=== PATIENT | female | born 1985 | race Caucasian/White ===

== ENCOUNTER → 2024-06-04 10:04 | Outpatient (REF) | payer BC, SELFPAY | LOC: PNTC 10:04 | PROVIDERS: ATTENDING PHYSICIAN Advanced Practice Midwife | DX: Z36.0 Encounter for antenatal screening for chromosomal anomalies (principal); Z36.82 Encounter for antenatal screening for nuchal translucency | CPT/HCPCS: 36415; 76801; 76813; 76817 ==

== ENCOUNTER 2024-07-04 07:53 | Emergency (ER) | payer BC, SELFPAY ==
[2024-07-04 07:55] VITALS: BP 122/86
--- NOTE | 2024-07-04 08:33 | ED.GENMED ---
History of Present Illness
General
Chief Complaint: Problems
Source: patient and spouse
Exam Limitations: none
Time Seen by Provider: 07/04/24 08:08
Nursing documentation reviewed up to this point in time: agreed with
History of Present Illness
History of Present Illness:
39-year-old female G2, P1 17 weeks presenting to the emergency department today with concerns of vaginal bleeding and cramping this morning described as bright red blood no clots no discharge. No preceding symptoms no increase in physical
activity or trauma. Follows up with those, myself
Past History
Past History
ED Past Medical History: Psychiatric (anxiety) and Other (IBS)
Social History
Tobacco: Non-smoker
Personal:
Review of Systems
Review of Systems
Allergies reviewed?: Yes
All Other Systems: ROS reviewed and negative except as documented in HPI and ROS
Phy Exam
Physical Exam
Physical Exam:
GENERAL: Alert , in no apparent distress
EYE: pupils equal and reactive
NECK: Supple, no significant adenopathy.
ENT: o/p clr, mmm.
CARDIAC: Regular rate and rhythm .
LUNGS: Clear breath sounds bilaterally, no acute respiratory distress, no wheezes/rales/rhonchi
ABDOMEN: Gravid abdomen, otherwise soft, without focal tenderness, no r/g, no cvat
Pelvic: Red blood in vaginal vault come from the cervix normal appearing cervix
NEUROLOGICAL: Alert and oriented, no focal neuro deficits
SKIN: Warm and dry, skin intact.
MUSCULOSKELETAL: No edema, well perfused.
PSYCH: Normal and appropriate interaction.
Course
Orders/Labs/Results
Orders:
Orders
07/04/24 08:28
Urinalysis Reflex To Culture Urgent
07/04/24 08:29
IV Insert/Care/Rem.- Treatment PRN
07/04/24 08:40
Type+Screen Urgent
CBC/With Diff [Complete Blood Count/With Diff] Urgent
CMP [Comprehensive Metabolic Panel] Urgent
07/04/24 08:51
ABO2 Urgent
BBK Wristband Number:
Associate notified that ABO2 has been ordered: [id number]
Date: 07/04/24
Time: 08:52
Outbound Telemarketer ID: [id number]
07/04/24 08:57
US W Transvaginal Urgent
Reason For Exam: vaginal bleeding cramping
Abnormal Lab Results
07/04/24
08:40
Hgb 11.8 L g/dL
(12.0-16.0)
Hct 34.5 L %
(37.0-47.0)
MCV 80.8 L fL
(81.0-99.0)
Creatinine 0.5 L mg/dL
(0.6-1.0)
Alkaline Phosphatase 29 L U/L
(38-126)
07/04/24 08:40
07/04/24 08:40
Vital Signs
Initial and Last Documented VS:
Initial Vital Signs
Temp Pulse Resp BP Pulse Ox
98.7 F 86 18 122/86 99
07/04/24 07:55 07/04/24 07:55 07/04/24 07:55 07/04/24 07:55 07/04/24 07:55
Last Documented Vital Signs
Temp Pulse Resp BP Pulse Ox
98.7 F 68 16 119/69 100
07/04/24 07:55 07/04/24 10:46 07/04/24 12:00 07/04/24 10:46 07/04/24 10:46
Information
Weeks gestation: Weeks: (17)
Location: Location: (iup)
MDM/Problems Addressed
MDM/Problems Addressed:
17 weeks woke up today with vaginal bleeding and some pelvic cramping. Upon arrival vital signs are normal patient in no distress patient does have red blood in the vaginal vault otherwise normal exam. Case discussed with OB plan to
get ultrasound and further blood testing. Ultrasound showing placenta previa as well as a complex left ovarian cyst. Case was discussed with gynecology obstetrics who came to see the patient and discussed all findings and appropriate follow-up.
Patient with decreased bleeding here feels well stable for discharge return precautions given.
*Critical Care Note
Total Time (30-74mins, 75-104mins- exclusive of procedures): Not Applicable
ED Attending Note
-
Portions of this chart may have been created with voice recognition software.� Occasional wrong word or��sound alike� substitutions may have occurred due to the inherent limitations of voice recognition software.
Discharge Plan
Departure
Patient Disposition: Home (Routine Discharge)
Date of Disposition: 07/04/24
Time of Disposition: 13:02
Patient with high blood pressure during this ER visit?: No
Condition: Good
Covid-19: Not Applicable
Discharge Problem:
Placenta previa, Mass of ovary
Instructions: Placenta previa
Prescriptions:
No Action
fluoxetine 20 MG capsule
20 mg PO DAILY
lubiprostone [Amitiza] 8 MCG capsule
40 mcg PO DAILY
melatonin 5 MG tablet
5 mg PO HS
hydrocortisone acetate 25 MG suppository
25 mg GA HS Qty: 5 0RF
Referrals:
Khushboo Schaffer CRNP [Family Provider] -
Activity Restrictions/Additional Instructions:
You came to the emergency department today with concerns of vaginal bleeding in . You are found to have placenta previa which explains her symptoms at this time. 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 Please do not engage in any intercourse or any traumatic vaginal insertions. Otherwise please rest and return for any worsening, new or concerning symptoms.
Interventions
Interventions:
*Risk Screen - Suicide Last Done: 07/04/24 07:55
*General Assessment Last Done: 07/04/24 08:03
*Neglect/Abuse Screening Last Done: 07/04/24 07:55
ED- Fall Risk Assessment Last Done: 07/04/24 08:47
*ED COVID-19 Vaccine History Last Done: 07/04/24 07:55
ED-Female Genitourinary Assessment Last Done: 07/04/24 08:03
Discharge Date and Time
Print Language: SPANISH
[2024-07-04 08:48] LABS: % Basophils 0.8 % (0-2); % Eosinophils 1.7 % (0-6); % Immature Granulocytes 0.5 % (0-0.5); % Lymphocytes 27.6 % (20.5-51.1); % Monocytes 7.7 % (1.7-9.3); % Neutrophils 61.7 % (42.2-75.2); Absolute Basophils 0.1 10^3/uL (0-0.2); Absolute Eosinophils 0.1 10^3/uL (0-0.7); Absolute Lymphocytes 1.8 10^3/uL (1.2-3.4); Absolute Monocytes 0.5 10^3/uL (0.1-0.6); Hematocrit 34.5 % (37.0-47.0); Hemoglobin 11.8 g/dL (12.0-16.0); Mean Corp Hgb Conc. 34.2 g/dL (33.0-37.0); Mean Corpuscular Hgb 27.6 pg (27.0-31.0); Mean Corpuscular Volume 80.8 fL (81.0-99.0); Mean Platelet Volume 9.9 fL (7.4-10.4); Nucleated Red Blood Cells % 0 %; Platelet Count 207 10^3/uL (130-400); Red Blood Cell Count 4.27 10^6/uL (4.20-5.40); Red Cell Dist. Width 13.3 % (11.5-14.5); White Blood Cell Count 6.5 10^3/uL (4.8-10.8)
[2024-07-04 09:00] LABS: ALT (SGPT) 14 U/L (0-35); AST (SGOT) 22 U/L (14-36); Albumin 3.9 g/dl (3.5-5.0); Alkaline Phosphatase 29 U/L (38-126); Blood Urea Nitrogen 12 mg/dl (7-17); Calcium 9.2 mg/dl (8.4-10.2); Carbon Dioxide 22 mmol/L (22-30); Chloride 106 mmol/L (98-107); Glucose 76 mg/dl (70-99); Potassium 4.1 mmol/L (3.5-5.1); Sodium 137 mmol/L (135-145); Total Bilirubin 0.3 mg/dl (0.2-1.3); Total Protein 6.4 g/dl (6.3-8.2); eGFR > 60.00
[2024-07-04 10:46] VITALS: BP 119/69
[2024-07-04 13:07] VITALS: BP 121/74
== END 2024-07-04 13:08 | disposition home or self-care (01) ==
LOC: EMR 07:53
PROVIDERS: Physician Assistant; EMERGENCY PHYSICIAN Emergency Medicine; FAMILY PHYSICIAN Nurse Practitioner Adult Health
DX: O44.02 Complete placenta previa NOS or without hemorrhage, second trimester (principal); O34.82 Maternal care for other abnormalities of pelvic organs, second trimester; N83.292 Other ovarian cyst, left side; O09.522 Supervision of elderly multigravida, second trimester; Z3A.17 17 weeks gestation of pregnancy
CPT/HCPCS: 99284; 76801; 76817; 80053; 85025; 86850; 86900; 86901

== ENCOUNTER → 2024-07-28 09:03 | Outpatient (REF) | payer BC, SELFPAY | LOC: PNTC 09:03 | PROVIDERS: ATTENDING PHYSICIAN Advanced Practice Midwife | DX: O09.529 Supervision of elderly multigravida, unspecified trimester (principal); Z34.82 Encounter for supervision of other normal pregnancy, second trimester; O43.219 Placenta accreta, unspecified trimester | CPT/HCPCS: 76811; 93976 ==

== ENCOUNTER → 2024-08-28 11:54 | Outpatient (REF) | payer BC, SELFPAY | LOC: PNTC 11:54 | PROVIDERS: ATTENDING PHYSICIAN Obstetrics & Gynecology | DX: O44.30 Partial placenta previa with hemorrhage, unspecified trimester (principal) | CPT/HCPCS: 76816; 76817 ==

== ENCOUNTER → 2024-09-29 09:03 | Outpatient (REF) | payer BC, SELFPAY | LOC: PNTC 09:03 | PROVIDERS: ATTENDING PHYSICIAN Advanced Practice Midwife | DX: O44.40 Low lying placenta NOS or without hemorrhage, unspecified trimester (principal) | CPT/HCPCS: 76816; 76817 ==

== ENCOUNTER → 2024-10-28 08:33 | Outpatient (REF) | payer BC, SELFPAY | LOC: PNTC 08:33 | PROVIDERS: ATTENDING PHYSICIAN Obstetrics & Gynecology | DX: O44.40 Low lying placenta NOS or without hemorrhage, unspecified trimester (principal); O34.80 Maternal care for other abnormalities of pelvic organs, unspecified trimester | CPT/HCPCS: 76816; 76817 ==

== ENCOUNTER 2024-11-21 15:41 | Observation (INO) | payer BC, SELFPAY ==
[2024-11-21 15:47] VITALS: BP 118/75; BMI 34.1
[2024-11-21 16:17] LABS: % Basophils 0.3 % (0-2); % Eosinophils 0.4 % (0-6); % Immature Granulocytes 0.4 % (0-0.5); % Lymphocytes 25.8 % (20.5-51.1); % Monocytes 7.1 % (1.7-9.3); Absolute Lymphocytes 2.4 10^3/uL (1.2-3.4); Absolute Monocytes 0.7 10^3/uL (0.1-0.6); Absolute Neutrophils 6.2 10^3/uL (1.4-6.5); Hematocrit 35.9 % (37.0-47.0); Hemoglobin 11.7 g/dL (12.0-16.0); Mean Corp Hgb Conc. 32.6 g/dL (33.0-37.0); Mean Corpuscular Hgb 27.9 pg (27.0-31.0); Mean Corpuscular Volume 85.7 fL (81.0-99.0); Mean Platelet Volume 11.1 fL (7.4-10.4); Nucleated Red Blood Cells % 0 %; Platelet Count 186 10^3/uL (130-400); Red Blood Cell Count 4.19 10^6/uL (4.20-5.40); Red Cell Dist. Width 15.2 % (11.5-14.5); White Blood Cell Count 9.5 10^3/uL (4.8-10.8)
[2024-11-21 16:29] LABS: ALT (SGPT) 13 U/L (0-35); AST (SGOT) 19 U/L (14-36); Albumin 3.9 g/dl (3.5-5.0); Alkaline Phosphatase 93 U/L (38-126); Blood Urea Nitrogen 8 mg/dl (7-17); Calcium 9.2 mg/dl (8.4-10.2); Carbon Dioxide 19 mmol/L (22-30); Chloride 106 mmol/L (98-107); Estimated Creatinine Clearance > 125 ml/min; Glucose 68 mg/dl (70-99); Potassium 3.9 mmol/L (3.5-5.1); Sodium 133 mmol/L (135-145); Total Bilirubin 0.5 mg/dl (0.2-1.3); Total Protein 6.5 g/dl (6.3-8.2); eGFR > 60.00
[2024-11-21 16:36] LABS: Protein/creatinine Ratio 0.1; Urine Protein 11 mg/dl
== END 2024-11-21 17:12 | disposition home or self-care (01) ==
LOC: LDRP 15:41
PROVIDERS: ADMITTING PHYSICIAN Obstetrics & Gynecology
DX: O26.893 Other specified pregnancy related conditions, third trimester (principal); Z3A.37 37 weeks gestation of pregnancy; R51.9 Headache, unspecified; R03.0 Elevated blood-pressure reading, without diagnosis of hypertension; Z88.2 Allergy status to sulfonamides; Z88.8 Allergy status to other drugs, medicaments and biological substances
CPT/HCPCS: 80053; 82570; 84156; 85025; 86850; 86900; 86901; G0378

== ENCOUNTER → 2024-11-25 09:02 | Outpatient (REF) | payer BC, SELFPAY | LOC: PNTC 09:02 | PROVIDERS: ATTENDING PHYSICIAN Obstetrics & Gynecology | DX: O44.40 Low lying placenta NOS or without hemorrhage, unspecified trimester (principal) | CPT/HCPCS: 76816; 76817 ==

== ENCOUNTER 2024-12-04 07:06 | Inpatient (IN) | payer BC, SELFPAY ==
[2024-12-04 07:18] VITALS: BP 133/91; BMI 34.9
[2024-12-04] MEDS: LR 1000 IV ×2 (07:45→14:02)
[2024-12-04 08:12] LABS: Hematocrit 35.4 % (37.0-47.0); Hemoglobin 11.6 g/dL (12.0-16.0); Mean Corp Hgb Conc. 32.8 g/dL (33.0-37.0); Mean Corpuscular Volume 85.5 fL (81.0-99.0); Mean Platelet Volume 11.1 fL (7.4-10.4); Platelet Count 193 10^3/uL (130-400); Red Blood Cell Count 4.14 10^6/uL (4.20-5.40); White Blood Cell Count 8.7 10^3/uL (4.8-10.8)
[2024-12-04] MEDS: TYLENOL 1000 MG PO (08:29)
[2024-12-04] MEDS: BICITRA 30 ML PO (08:30)
[2024-12-04] MEDS: ANCEF 10 IV (08:31)
[2024-12-04] MEDS: PITOCIN 30 UNITS/NSS 500 ML IV ×2 (10:35→14:12)
[2024-12-04] MEDS: BENADRYL 25 MG IV (13:03)
[2024-12-04] MEDS: TORADOL 15 MG IV ×2 (16:58→23:08)
[2024-12-04] MEDS: ZOFRAN 4 MG IV (17:06)
[2024-12-04] MEDS: REGLAN 10 MG IV (19:57)
[2024-12-05 04:58] LABS: Hematocrit 31.7 % (37.0-47.0); Hemoglobin 10.5 g/dL (12.0-16.0); Mean Corp Hgb Conc. 33.1 g/dL (33.0-37.0); Mean Corpuscular Hgb 27.9 pg (27.0-31.0); Mean Corpuscular Volume 84.3 fL (81.0-99.0); Mean Platelet Volume 11.2 fL (7.4-10.4); Platelet Count 191 10^3/uL (130-400); Red Blood Cell Count 3.76 10^6/uL (4.20-5.40); White Blood Cell Count 13.7 10^3/uL (4.8-10.8)
[2024-12-05] MEDS: TORADOL 15 MG IV ×2 (05:12→11:26)
--- NOTE | 2024-12-05 08:12 | W.PN.ANS.POP ---
Anesthesia Post Operative
- Anesthesia Post Op Note
Vital Signs Stable-See Nursing Note: Yes
Airway Patent: Yes
Adequate Pain Control: Yes
Change in Mental Status: No
Current Postoperative Nausea & Vomiting: No
Anesthesia Complications: No
General Anesthetic Recall: No
Unplanned Admission: No
Post Op Hydration Adequate: Yes
[2024-12-05] MEDS: FEOSOL 325 MG PO (08:40)
[2024-12-05] MEDS: PRENATAL PLUS 1 TABLET PO (08:40)
[2024-12-05] MEDS: MUCINEX 600 MG PO ×2 (08:40→20:07)
[2024-12-05 10:56] LABS: Syphilis/T. pallidum Ab Reflex Negative (Negative)
[2024-12-05 11:39] LABS: ALT (SGPT) 18 U/L (0-35); AST (SGOT) 27 U/L (14-36); Albumin 3.2 g/dl (3.5-5.0); Alkaline Phosphatase 84 U/L (38-126); Blood Urea Nitrogen 9 mg/dl (7-17); Calcium 9.4 mg/dl (8.4-10.2); Carbon Dioxide 26 mmol/L (22-30); Chloride 105 mmol/L (98-107); Estimated Creatinine Clearance > 125 ml/min; Glucose 77 mg/dl (70-99); Potassium 3.9 mmol/L (3.5-5.1); Sodium 134 mmol/L (135-145); Total Bilirubin 0.5 mg/dl (0.2-1.3); Total Protein 5.7 g/dl (6.3-8.2); eGFR > 60.00
[2024-12-05] MEDS: TYLENOL 650 MG PO ×2 (14:56→23:44)
[2024-12-05] MEDS: MOTRIN 600 MG PO ×2 (16:59→23:44)
[2024-12-05] MEDS: PROCARDIA XL (EXTENDED RELEASE) 30 MG PO (16:59)
[2024-12-05] MEDS: BENADRYL 25 MG PO (18:33)
[2024-12-05] MEDS: REGLAN 10 MG PO (18:33)
[2024-12-05] MEDS: MYLICON 80 MG PO (23:44)
[2024-12-06] MEDS: FEOSOL 325 MG PO (07:36)
[2024-12-06] MEDS: MUCINEX 600 MG PO (07:36)
[2024-12-06] MEDS: PRENATAL PLUS 1 TABLET PO (07:37)
[2024-12-06] MEDS: PROCARDIA XL (EXTENDED RELEASE) 30 MG PO (07:37)
[2024-12-06] MEDS: SENOKOT-S 1 TABLET PO (07:44)
[2024-12-06] MEDS: TYLENOL 650 MG PO ×2 (07:44→14:17)
[2024-12-06] MEDS: MOTRIN 600 MG PO ×2 (07:45→14:18)
--- NOTE | 2024-12-06 16:52 | W.DS.TRANS ---
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
-
Discharge Instructions:
Discharge Diagnosis/Procedures delivery
Instructions:
Stand-Alone Forms: LDRP Delivery
LDRP Hypertensive Disorders
Changes to Home Medications: No
Discharge Medications:
DC Medications w/original date entered in [employer]
Vitamin 1 tab PO DAILY 11/21/24
polyethylene glycol 3350 17 gram oral powder packet (Miralax) 1 g PO DAILY 11/21/24
Colace 2 tab PO BID 12/04/24
acetaminophen 325 mg tablet 650 mg (2 x 325 mg) PO Q4HPRN PRN mild pain #0 tabs 12/06/24
ferrous sulfate 325 mg (65 mg iron) tablet (FeroSul) 325 mg PO DAILY #0 tabs 12/06/24
guaifenesin 600 mg tablet, extended release 12 hr 600 mg PO Q12 #0 tabs 12/06/24
ibuprofen 600 mg tablet 600 mg PO Q6HPRN PRN cramps #30 tabs 12/06/24
nifedipine 30 mg tablet,extended release 30 mg PO DAILY #30 tabs 12/06/24
sennosides 8.6 mg-docusate sodium 50 mg tablet 1 tab PO DAILYPRN PRN constipation #0 tabs 12/06/24
simethicone 80 mg chewable tablet 80 mg PO TIDPRN PRN flatulence #0 tabs 12/06/24
Home Medication Changes
Pending Results: Yes
Additional Pending Results:
salpingectomy and ovarian cystectomy path reports
Total time spent discharging patient (in min): 20
== END 2024-12-06 17:47 | disposition home or self-care (01) | DRG 785 ==
LOC: LDRP 07:06
PROVIDERS: Student in an Organized Health Care Education/Training Program; ADMITTING PHYSICIAN Obstetrics & Gynecology
PROC: 0UT20ZZ Resection of Bilateral Ovaries, Open Approach (ICD-10-PCS; 2024-12-04)
PROC: 10D00Z1 Extraction of Products of Conception, Low, Open Approach (ICD-10-PCS; 2024-12-04)
PROC: 0UT70ZZ Resection of Bilateral Fallopian Tubes, Open Approach (ICD-10-PCS; 2024-12-04)
DX: O34.211 Maternal care for low transverse scar from previous cesarean delivery (principal); Z3A.39 39 weeks gestation of pregnancy; Z37.0 Single live birth; O69.81X0 Labor and delivery complicated by cord around neck, without compression, not applicable or unspecified; O13.4 Gestational [pregnancy-induced] hypertension without significant proteinuria, complicating childbirth; Z30.2 Encounter for sterilization; Z88.2 Allergy status to sulfonamides; Z82.49 Family history of ischemic heart disease and other diseases of the circulatory system
CPT/HCPCS: 88302; 88304; 88307; 80053; 85027; 86780; 86850; 86900; 86901

== ENCOUNTER 2025-07-15 18:10 | Emergency (ER) | payer BC, SELFPAY ==
[2025-07-15] VITALS (18 sets, daily range): BP systolic 64–124; BP diastolic 45–95; PULSE 77–106; BMI 26.0
--- NOTE | 2025-07-15 20:11 | ED.GENMED ---
History of Present Illness
General
Chief Complaint: Fainting/Passed Out
Source: patient and spouse
Exam Limitations: none
Time Seen by Provider: 07/15/25 18:40
Nursing documentation reviewed up to this point in time: agreed with
History of Present Illness
History of Present Illness:
40-year-old female presents for near syncopal episode. History of x 2, had a mini tummy tuck earlier today as an outpatient at [facility] in [place]. She had Toradol only, no anesthesia other than local anesthesia at the incision
site. She has a picture of her incision and it goes from one iliac crest to the other. Dressing intact and dry.
Patient had her mini tummy tuck 11:00 this morning, her picked her up at 1245, she went home and went upstairs and took a nap. After her nap she got up and after she walked to the bottom of the steps she stopped and found that she could not
talk, she was nauseous and she felt faint. Her happened to walk in finding her looking at him trying to get his name out but it came out in whispers, she seemed a little disoriented and then she collapsed, falling backwards and he caught
her head as she fell backwards to the ground striking her lower back. She states during that episode she could hear her 's voice but could not respond. She said she was laying on the floor she felt worse until her mom opened the door which
was a few feet away and the cold air felt 'so good.' They called EMS and she states on her way here in the ambulance she felt even worse with nausea and feeling like she had the urge to have a bowel move. They gave her a liter of fluids as her
blood pressure was 60 systolic. She states after the liter of IV fluid she felt 90% better.
At this time she still feels a little dizzy and a little nauseous but much better. She states the abdominal site is sore she rates the pain as 5/10 similar to when she had her c sections.
Has Keflex 500 q 6 hr and Ketorolac 10 mg, last does of each was 4 p.m.
Past History
Past History
ED Past Medical History: Psychiatric (anxiety) and Other (IBS)
ED Past Surgical History: and Other (Mini tummy tuck earlier today)
Social History
Tobacco: Non-smoker
Alcohol: Occasional
Personal:
Living: with family
Review of Systems
Review of Systems
Allergies reviewed?: Yes
All Other Systems: ROS reviewed and negative except as documented in HPI and ROS
Phy Exam
Physical Exam
Physical Exam:
GENERAL: No acute distress. A&Ox3.
CONSTITUTIONAL: Afebrile.
EYES: clear, conjunctivae normal
ENMT: moist mucus membranes, Pharynx nl
RESPIRATORY: Regular respirations, nonlabored, lungs clear.
CARDIOVASCULAR: Regular rate and rhythm, no murmurs, no rubs.
GI: Soft, post op tenderness, normal BS
MUSCULOSKELETAL: Moves with ease. Well perfused.
SKIN: Warm, dry, pale
PSYCH: Normal mood and affect. Well kept, interactive and appropriate
NEUROLOGIC: Awake, alert and oriented. No focal neurological deficits
Course
Orders/Labs/Results
Orders:
Orders
07/15/25 20:10
Orthostatic VS- Treatment ONCE
07/15/25 20:23
Complete Blood Count/With Diff Urgent
Comprehensive Metabolic Panel Urgent
07/15/25 20:46
0.9% Sodium Chloride 1000 ml [Nss] 1,000 ml IV BOLUS
Abnormal Lab Results
07/15/25
20:23
RBC 3.67 L 10^6/uL
(4.20-5.40)
Hgb 10.4 L g/dL
(12.0-16.0)
Hct 30.7 L %
(37.0-47.0)
MPV 11.3 H fL
(7.4-10.4)
Absolute Neuts (auto) 7.0 H 10^3/uL
(1.4-6.5)
Lymphocytes % 20.2 L %
(20.5-51.1)
Chloride 109 H mmol/L
(98-107)
Alkaline Phosphatase 25 L U/L
(38-126)
Total Protein 5.9 L g/dl
(6.3-8.2)
07/15/25 20:23
07/15/25 20:23
Vital Signs
Initial and Last Documented VS:
Initial Vital Signs
Temp Pulse Resp BP Pulse Ox
97.5 F 71 20 98/63 100
07/15/25 18:11 07/15/25 18:11 07/15/25 18:11 07/15/25 18:11 07/15/25 18:11
Last Documented Vital Signs
Temp Pulse Resp BP Pulse Ox
97.5 F 101 24 114/85 100
07/15/25 18:11 07/15/25 22:45 07/15/25 22:45 07/15/25 22:44 07/15/25 22:45
MDM/Problems Addressed
MDM/Problems Addressed:
40-year-old female presents for near syncopal episode. History of x 2, had a mini tummy tuck earlier today as an outpatient at [facility] in [place]. She had Toradol only, no anesthesia other than local anesthesia at the incision
site. She has a picture of her incision and it goes from one iliac crest to the other. Dressing intact and dry.
Patient had her mini tummy tuck 11:00 this morning, her picked her up at 1245, she went home and went upstairs and took a nap. After her nap she got up and after she walked to the bottom of the steps she stopped and found that she could not
talk, she was nauseous and she felt faint. Her happened to walk in finding her looking at him trying to get his name out but it came out in whispers, she seemed a little disoriented and then she collapsed, falling backwards and he caught
her head as she fell backwards to the ground striking her lower back. She states during that episode she could hear her 's voice but could not respond. She said she was laying on the floor she felt worse until her mom opened the door which
was a few feet away and the cold air felt 'so good.' They called EMS and she states on her way here in the ambulance she felt even worse with nausea and feeling like she had the urge to have a bowel move. They gave her a liter of fluids as her
blood pressure was 60 systolic. She states after the liter of IV fluid she felt 90% better.
At this time she still feels a little dizzy and a little nauseous but much better. She states the abdominal site is sore she rates the pain as 5/10 similar to when she had her c sections.
Has Keflex 500 q 6 hr and Ketorolac 10 mg, last does of each was 4 p.m.
8:30 PM:
Orthostatics significantly positive, second liter of IV fluids ordered
9:45 PM
CBC: Hemoglobin 10.4 consistent with her baseline
CMP: No clinically significant abnormality
10:45 PM:
After second liter of IV fluids, negative orthostatics. She is feeling much better. She has been out of bed and ambulating with minimal dizziness
Total of 225 ml non clotted bloody drainage emptied from drain.
Her abdomen remains non distended, dressing removed, no collection of fluid, dressings with small amount of blood, abd binder re applied.
She has been in touch with her surgeon during her stay here, he is aware of the amount of bleeding
He will see her tomorrow morning for follow up
Pt and are comfortable going home.
*Pulse Oximetry
SaO2: 100
Oxygen Mode of Delivery: Room air
Patient hypoxic: no
*Critical Care Note
Total Time (30-74mins, 75-104mins- exclusive of procedures): Not Applicable
ED Attending Note
-
Portions of this chart may have been created with voice recognition software.� Occasional wrong word or��sound alike� substitutions may have occurred due to the inherent limitations of voice recognition software.
Discharge Plan
Departure
Patient Disposition: Home (Routine Discharge)
Date of Disposition: 07/15/25
Time of Disposition: 22:55
Patient with high blood pressure during this ER visit?: No
Condition: Good
Discharge Problem:
Near syncope, Post-op bleeding
Instructions: Syncope (Fainting) (DC), Bleeding After Surgery
Prescriptions:
No Action
polyethylene glycol 3350 [Miralax] 17 gram Powder In Packet
1 g PO DAILY
Vitamin
1 tab PO DAILY
Colace
2 tab PO BID
acetaminophen 325 mg Tablet
650 mg PO Q4HPRN PRN (Reason: mild pain) Qty: 0 0RF
sennosides-docusate sodium 8.6-50 mg Tablet
1 tab PO DAILYPRN PRN (Reason: constipation) Qty: 0 0RF
nifedipine 30 mg Tablet Extended Release
30 mg PO DAILY Qty: 30 1RF
ferrous sulfate [FeroSul] 325 mg (65 mg iron) Tablet
325 mg PO DAILY Qty: 0 0RF
ibuprofen 600 mg Tablet
600 mg PO Q6HPRN PRN (Reason: cramps) Qty: 30 0RF
simethicone 80 mg Tablet,Chewable
80 mg PO TIDPRN PRN (Reason: flatulence) Qty: 0 0RF
guaifenesin 600 mg Tablet Extended Release 12hr
600 mg PO Q12 Qty: 0 0RF
Referrals:
Your Surgeon [Other] - Tomorrow
Angeli Reyes PA-C [Family Provider, Family Practice]
Activity Restrictions/Additional Instructions:
As we discussed, take your Keflex and Toradol when you get home, eat a little something first
You had a total of 200 ml of non clotted, bloody drainage here today.
Keep your appointment tomorrow morning with your surgeon.
Return here immediately for worsening bleeding, worsening abdominal pain, feeling faint or feeling worse in any way.
When you go from laying to sitting to standing, do it SLOWLY.
Consintue to drink plenty of water.
Interventions
Interventions:
*Risk Screen - Suicide Last Done: 07/15/25 18:11
*General Assessment Last Done: 07/15/25 18:11
*Neglect/Abuse Screening Last Done: 07/15/25 18:18
*ED- Fall Risk Assessment Last Done: 07/15/25 18:18
*ED COVID-19 Vaccine History Last Done: 07/15/25 18:18
*ED Influenza Vaccine History Last Done: 07/15/25 18:18
ED- Cardiac Assessment Last Done: 07/15/25 18:37
ED- Neurological Assessment Last Done: 07/15/25 18:37
Discharge Date and Time
Print Language: BOLIVIAN
[2025-07-15 20:30] LABS: Hematocrit 30.7 % (37.0-47.0); Hemoglobin 10.4 g/dL (12.0-16.0); Mean Corp Hgb Conc. 33.9 g/dL (33.0-37.0); Mean Corpuscular Volume 83.7 fL (81.0-99.0); Nucleated Red Blood Cells % 0 %; Platelet Count 197 10^3/uL (130-400); Red Cell Dist. Width 13.5 % (11.5-14.5)
[2025-07-15 20:44] LABS: ALT (SGPT) 11 U/L (0-35); AST (SGOT) 18 U/L (14-36); Albumin 3.5 g/dl (3.5-5.0); Alkaline Phosphatase 25 U/L (38-126); Blood Urea Nitrogen 11 mg/dl (7-17); Calcium 8.4 mg/dl (8.4-10.2); Carbon Dioxide 24 mmol/L (22-30); Chloride 109 mmol/L (98-107); Estimated Creatinine Clearance 97 ml/min; Glucose 94 mg/dl (70-99); Potassium 3.5 mmol/L (3.5-5.1); Sodium 136 mmol/L (135-145); Total Protein 5.9 g/dl (6.3-8.2); eGFR > 60.00
[2025-07-15] MEDS: NSS 1000 IV (20:57)
== END 2025-07-15 23:30 | disposition home or self-care (01) ==
LOC: EMR 18:10
PROVIDERS: Registered Nurse; EMERGENCY PHYSICIAN Student in an Organized Health Care Education/Training Program; FAMILY PHYSICIAN Physician Assistant Medical
DX: R55 Syncope and collapse (principal); L76.22 Postprocedural hemorrhage of skin and subcutaneous tissue following other procedure; K58.9 Irritable bowel syndrome, unspecified
CPT/HCPCS: 99284; 96360; 80053; 85025

== ENCOUNTER 2025-07-30 17:24 | Emergency (ER) | payer BC, SELFPAY ==
[2025-07-30 17:26] VITALS: BP 131/89
--- NOTE | 2025-07-30 17:49 | ED.GENMED ---
History of Present Illness
General
Chief Complaint: Post Operative Problem(s)
Source: patient
Exam Limitations: none
Time Seen by Provider: 07/30/25 17:33
Nursing documentation reviewed up to this point in time: agreed with
History of Present Illness
History of Present Illness:
Patient to the emergency department for evaluation of surgical incision to abdomen. States she had a ' mini tummy tuck' approximately 15 days ago. Procedure was completed by , in office. Initially she had a drain placed but when the
drainage decreased. States since then she notes bloody drainage from the center of wound. She denies fever or chills. She has been following up with her surgeon daily for evaluation. She was sent to the emergency department tonight for
evaluation she feels that the bleeding is worsening. Brought self to the emergency department for evaluation.
Past History
Past History
ED Past Medical History: Psychiatric (anxiety) and Other (IBS)
ED Past Surgical History: and Other (Mini tummy tuck earlier today)
Social History
Tobacco: Non-smoker
Alcohol: Occasional
Personal:
Living: with family
Review of Systems
Review of Systems
Allergies reviewed?: Yes
All Other Systems: ROS reviewed and negative except as documented in HPI and ROS
Constitutional: Reports no symptoms
EENT: Reports no symptoms
Respiratory: Reports no symptoms
Cardiac: Reports no symptoms
ABD/GI: Reports no symptoms
: Reports no symptoms
Musculoskeletal: Reports no symptoms
Skin: Reports other (20cm surgical horizontal incision lower abdomen. Mild amount of bloody discharge from a tiny opening at the center of the surgical incision. No erythema no swelling no pain)
Neurological: Reports no symptoms
Psychiatric: Reports no symptoms
Phy Exam
General Physical Exam
General Presentation: well appearing and no apparent distress
General age: appears stated age
General Skin: warm and dry
General Habitus: normal
General Mental: alert
Gastrointestinal Exam
Gastrointestinal Exam: non tender and soft
Musculoskeletal Exam
Musculoskeletal Exam: full ROM
Skin Exam
Skin Exam: normal color, warm/dry and other (Approximate 20 cm horizontal surgical incision to lower abdomen. At the center of incision there is a tiny opening approximately 3 to 5 mm. Small amount of bloody drainage at site. There is no
surrounding redness or swelling. No pain to palpation.)
Psychiatric Exam
Psychiatric Exam: normal mood/affect
Course
Orders/Labs/Results
Orders:
Orders
07/30/25 17:46
CT Abd/pelvis W Iv Cont Urgent
Comment:
Reason For Exam: abdominoplasty 2 weeks ago, wound draining
07/30/25 17:47
Test Result ONCE
07/30/25 17:55
Complete Blood Count/With Diff Urgent
Comprehensive Metabolic Panel Urgent
HCG, Serum Qualitative Screen Urgent
07/30/25 20:32
Cephalexin Monohydrate [Keflex] 500 mg PO NOW STA
07/30/25 20:36
Acetaminophen [Tylenol] 1,000 mg .ROUTE .STK-MED ONE
Acetaminophen [Tylenol] 1,000 mg PO NOW STA
Abnormal Lab Results
07/30/25
17:55
RBC 3.74 L 10^6/uL
(4.20-5.40)
Hgb 10.5 L g/dL
(12.0-16.0)
Hct 31.2 L %
(37.0-47.0)
RDW 14.6 H %
(11.5-14.5)
Sodium 134 L mmol/L
(135-145)
Alkaline Phosphatase 36 L U/L
(38-126)
07/30/25 17:55
07/30/25 17:55
Vital Signs
Initial and Last Documented VS:
Initial Vital Signs
Temp Pulse Resp BP Pulse Ox
98.3 F 97 18 131/89 98
07/30/25 17:26 07/30/25 17:26 07/30/25 17:26 07/30/25 17:26 07/30/25 17:26
Last Documented Vital Signs
Temp Pulse Resp BP Pulse Ox
98.3 F 87 16 108/79 100
07/30/25 17:26 07/30/25 20:35 07/30/25 20:35 07/30/25 20:35 07/30/25 20:35
*Radiology
Radiology exam reviewed: radiology read reviewed
*Pulse Oximetry
SaO2: 98
Oxygen Mode of Delivery: Room air
Patient hypoxic: no
*Critical Care Note
Total Time (30-74mins, 75-104mins- exclusive of procedures): Not Applicable
Update Note
Update Note:
Patient to the emergency department for evaluation of lower abdominal surgical incision. Patient states that she had a mini tummy tuck 2 weeks ago. States she developed bloody discharge from the center of the wound. She has been following with
her surgeon daily but tonight was sent to the emergency department for further evaluation. Vital signs are stable she remains afebrile. Approximate 20 cm horizontal surgical incision to her lower abdomen. Small amount of bloody drainage noted
from center wound. There is a 3 to 5 mm opening at the center of the incision, remainder of incision with skin edges intact no redness swelling or discharge. Labs reviewed. WBC normal at 5.2. She was sent for abdominal CT with contrast. Complex
fluid collection with slightly enhancing rim within the subcutaneous soft tissue of the anterior pelvic wall this could represent hematoma/seroma. Underlying infection cannot be ruled out. I spoke with Dr. Tate by phone. Lab and CT results
were reviewed with him. He feels that this collection does represent a seroma and feels that this can be well-managed in the office. She was placed on Keflex 500 mg prophylactically at his request. [facility] and she will
follow-up with Dr.Skalicky in the a.m. She was given instructions on signs and symptoms to return to the emergency department and she is agreeable to this plan. A copy of the CT report was sent with patient per the quest of her surgeon.
ED Attending Note
-
Portions of this chart may have been created with voice recognition software.� Occasional wrong word or��sound alike� substitutions may have occurred due to the inherent limitations of voice recognition software.
Discharge Plan
Departure
Patient Disposition: Home (Routine Discharge)
Date of Disposition: 07/30/25
Time of Disposition: 20:33
Patient with high blood pressure during this ER visit?: No
Condition: Good
Covid-19: Not Applicable
Discharge Problem:
Encounter for post surgical wound check
Instructions: Bleeding After Surgery, Seroma
Prescriptions:
New
cephalexin 500 mg capsule
500 mg PO Q12H 10 Days Qty: 20 0RF
No Action
polyethylene glycol 3350 [Miralax] 17 gram Powder In Packet
1 g PO DAILY
Vitamin
1 tab PO DAILY
Colace
2 tab PO BID
acetaminophen 325 mg Tablet
650 mg PO Q4HPRN PRN (Reason: mild pain) Qty: 0 0RF
sennosides-docusate sodium 8.6-50 mg Tablet
1 tab PO DAILYPRN PRN (Reason: constipation) Qty: 0 0RF
nifedipine 30 mg Tablet Extended Release
30 mg PO DAILY Qty: 30 1RF
ferrous sulfate [FeroSul] 325 mg (65 mg iron) Tablet
325 mg PO DAILY Qty: 0 0RF
ibuprofen 600 mg Tablet
600 mg PO Q6HPRN PRN (Reason: cramps) Qty: 30 0RF
simethicone 80 mg Tablet,Chewable
80 mg PO TIDPRN PRN (Reason: flatulence) Qty: 0 0RF
guaifenesin 600 mg Tablet Extended Release 12hr
600 mg PO Q12 Qty: 0 0RF
Referrals:
Angeli Reyes PA-C [Family Provider, Family Practice]
Activity Restrictions/Additional Instructions:
Follow-up with in the AM. Return to the emergency department immediately for fever/chills, increasing pain, increasing redness or swelling at site.
Interventions
Interventions:
*Risk Screen - Suicide Last Done: 07/30/25 17:26
*General Assessment Last Done: 07/30/25 17:26
*Neglect/Abuse Screening Last Done: 07/30/25 17:59
*ED- Fall Risk Assessment Last Done: 07/30/25 17:59
*ED COVID-19 Vaccine History Last Done: 07/30/25 17:59
*ED Influenza Vaccine History Last Done: 07/30/25 17:59
*Nursing Disposition Last Done: 07/30/25 20:57
ED-Skin Assessment Last Done: 07/30/25 17:58
Discharge Date and Time
Print Language: PUERTO RICAN
[2025-07-30 18:02] LABS: Hematocrit 31.2 % (37.0-47.0); Hemoglobin 10.5 g/dL (12.0-16.0); Mean Corp Hgb Conc. 33.7 g/dL (33.0-37.0); Mean Corpuscular Volume 83.4 fL (81.0-99.0); Nucleated Red Blood Cells % 0 %; Platelet Count 276 10^3/uL (130-400); Red Cell Dist. Width 14.6 % (11.5-14.5)
[2025-07-30 18:25] LABS: HCG, Serum Qualitative Screen Negative
[2025-07-30 18:27] LABS: ALT (SGPT) 12 U/L (0-35); AST (SGOT) 17 U/L (14-36); Albumin 4.0 g/dl (3.5-5.0); Alkaline Phosphatase 36 U/L (38-126); Blood Urea Nitrogen 9 mg/dl (7-17); Calcium 9.2 mg/dl (8.4-10.2); Carbon Dioxide 25 mmol/L (22-30); Chloride 105 mmol/L (98-107); Glucose 89 mg/dl (70-99); Potassium 4.0 mmol/L (3.5-5.1); Sodium 134 mmol/L (135-145); Total Protein 6.8 g/dl (6.3-8.2); eGFR > 60.00
[2025-07-30 20:35] VITALS: BP 108/79
[2025-07-30] MEDS: KEFLEX 500 MG PO (20:38)
[2025-07-30] MEDS: TYLENOL 1000 MG PO (20:39)
== END 2025-07-30 20:57 | disposition home or self-care (01) ==
LOC: EMR 17:24
PROVIDERS: Nurse Practitioner; EMERGENCY PHYSICIAN Emergency Medicine; FAMILY PHYSICIAN Physician Assistant Medical
DX: Z48.89 Encounter for other specified surgical aftercare (principal)
CPT/HCPCS: 99284; 74177; 80053; 84703; 85025; Q9967

== ENCOUNTER → 2025-09-05 08:02 | Outpatient (REF) | payer BC, SELFPAY | LOC: MRI 08:02 | PROVIDERS: ATTENDING PHYSICIAN Physician Assistant Surgical | DX: R19.04 Left lower quadrant abdominal swelling, mass and lump (principal) | CPT/HCPCS: 72197; A9575 ==